=== PATIENT | male | born 1950 | race African-American/Black ===

== ENCOUNTER 2017-03-20 20:27 | Emergency (ER) | payer OTHER ==
[2017-03-20 20:31] VITALS: BP 123/59; TEMP 99.2; BMI 21.4
[2017-03-20 21:12] LABS: BASOPHIL 4.5 % (0-2.0); EOSINOPHIL 0.3 % (0-4.5); MCH 30.8 pg (25.7-33.7); MCHC 34.2 g/dl (32.0-35.9); MEAN PLT VOLUME 9.1 fl (7.5-11.1); NEUTROPHILS 76.7 % (42.8-82.8); PLATELET COUNT 130 K/MM3 (134-434); RDW 13.5 % (11.9-15.9); WHITE BLOOD COUNT 15.5 K/mm3 (4.0-10.8)
[2017-03-20 21:22] LABS: CPK(DFH) 152 IU/L (38-174)
[2017-03-20 21:23] LABS: ALBUMIN 4.2 g/dl (3.5-5.0); ALK PHOS 48 U/L (32-92); ANION GAP 6 (8-16); BILIRUBIN,TOTAL 0.9 mg/dl (0.2-1.0); CALCIUM 8.8 mg/dl (8.4-10.2); CO2 29 mmol/L (22-28); COCKROFT - GAULT 55.57; CREATININE 1.2 mg/dl (0.6-1.3); GLUCOSE,RANDOM 120 mg/dl (74-106); SGOT/AST 38 U/L (10-42); SGPT/ALT 22 U/L (10-40); TOT PROT 7.1 g/dl (6.4-8.3)
--- NOTE | 2017-03-20 21:37 | PDOC ---
[id number] 4d MIGRAINE/CHEST PAIN/COUGH Time Seen by Provider: 03/20/17 20:34 - History of Present Illness Initial Comments: This 66-year-old man with a history of diverticulitis/colon resection but no other significant history presents with 2 day history of nonproductive cough, fever and headache. Patient is from [place], visiting family here . He traveled by car from [place] approximately one week ago. He has no history of smoking/asthma/COPD. No history of other recent travel and no known sick contacts. Patient states that he had MRI of brain in December of this year. He was told that he possibly had a mass and that a repeat MRI should be performed in 3-4 months. No previous history of headache or other neurologic abnormalities. Patient describes today's headache as being primarily in the frontal area, nonpulsatile. No nausea/vomiting or photophobia. 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) GI Disorders: Yes (DIVERTICULITIS) - Surgical History Abdominal Surgery: Yes (COLON RESECTION) - Psycho/Social/Smoking Cessation Hx Anxiety: No Suicidal Ideation: No Smoking History: Never smoked Review of Systems - Review of Systems Able to Perform ROS?: Yes Comments:: 12 point review of systems is negative except for what is noted in the history of present illness *Physical Exam - Vital Signs Last Vital Signs Temp Pulse Resp BP Pulse Ox 99.2 F 78 16 123/59 97 03/20/17 20:29 03/20/17 20:29 03/20/17 20:29 03/20/17 20:29 03/20/17 20:29 - Physical Exam Comments: GENERAL: Awake, alert, and fully oriented, in no acute distress HEAD: No signs of trauma EYES:, pupils 2 mm and equal, briskly reactive, EOMI, sclera anicteric, conjunctiva clear ENT: Auricles normal inspection, hearing grossly normal, nares patent, oropharynx clear without exudates. Moist mucosa NECK: Normal ROM, supple, no lymphadenopathy, JVD, or masses; no meningismus present LUNGS: Expiratory crackles bilateral bases; no wheezing or rhonchi present HEART: Regular rate and rhythm, normal S1 and S2, no murmurs, rubs or gallops ABDOMEN: Soft, nontender, normoactive bowel sounds. No guarding, no rebound. No masses EXTREMITIES: Normal range of motion, no edema. No clubbing or cyanosis. No cords, erythema, or tenderness NEUROLOGICAL: Cranial nerves II through XII grossly intact. Normal speech, normal gait SKIN: Warm, Dry, normal turgor, no rashes or lesions noted. ED Treatment Course - LABORATORY CBC & Chemistry Diagram: 03/20/17 20:51 03/20/17 20:51 - ADDITIONAL ORDERS Additional order review: Laboratory Results 03/20/17 03/20/17 20:51 20:51 Sodium 136 Potassium 4.8 Chloride 101 Carbon Dioxide 29 H Anion Gap 6 L BUN 13 Creatinine 1.2 Creat Clearance w eGFR > 60 Random Glucose 120 H Calcium 8.8 Total Bilirubin 0.9 AST 38 ALT 22 Alkaline Phosphatase 48 Creatine Kinase 152 Total Protein 7.1 Albumin 4.2 03/20/17 20:51 RBC 5.37 MCV 90.0 MCHC 34.2 RDW 13.5 MPV 9.1 Neutrophils % 76.7 Lymphocytes % 12.9 Monocytes % 5.6 Eosinophils % 0.3 Basophils % 4.5 H Medical Decision Making - Medical Decision Making Because of the patient's previous history of possible intracranial mass and a few day history of headache, noncontrast head CT was performed to evaluate for intracranial pathology. Interpretation by Imaging administration assistant showed no evidence of acute intracranial abnormality . No mass was seen. There was note of mucoperiosteal thickening of the paranasal sinuses, otherwise no abnormality seen. Twelve-lead electrocardiogram performed. This showed normal sinus rhythm at 72 bpm; intervals, wave forms and axis are all normal. There is no evidence of acute ST or T-wave abnormalities. Laboratory evaluation notable for white blood cell count of 15, 500 with mild left shift. CBC was otherwise unremarkable. Chemistry profile was essentially normal. Cardiac enzymes were not elevated. Chest x-ray (PA/lateral) showed bibasilar atelectasis but no evidence of infiltrate, mass or effusion. Patient given a liter of normal saline IV. He is also given Toradol 30 mg IV for his headache. Patient describes significant relief in his headache after fluid and IV Toradol. Clinical presentation most consistent with acute bronchitis. Because patient has a elevation of white blood cell count of 15,500, there is possibility that he may have early pneumonia (especially in light of his abnormal auscultatory exam). Because of this, he will be started on azithromycin 5 day course. First dose of 500 mg will be administered here in the emergency room with prescription for remainder of the course be transmitted to his pharmacy. The patient also asked for anti-inflammatory to be used if he has any further pain/ headache. Small (#20) prescription of Toradol 10 mg to be used up to 4 times a day, taken with food, will be prescribed as needed. The patient is scheduled to for return to [place] by car tomorrow. 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 He should follow-up with his own doctor within 48 hours of return to [place] (workup results will be provided for the patient). He should return to the emergency room if he has persistent high fever, severe cough or shortness of breath *DC/Admit/Observation/Transfer Diagnosis at time of Disposition: Acute bronchitis Qualifiers: Bronchitis organism: unspecified organism Qualified Code(s): J20.9 - Acute bronchitis, unspecified - Discharge Dispostion Disposition: HOME Condition at time of disposition: Stable - Prescriptions Prescriptions: Ketorolac Tromethamine [Toradol] 10 mg PO Q6H PRN #20 tablet PRN Reason: Moderate Pain Azithromycin [Zithromax 250mg Tablets -] 250 mg PO DAILY #4 tablet - Patient Instructions Printed Discharge Instructions: DI for Acute Bronchitis Additional Instructions: rest Drink plenty of fluids Azithromycin 250 mg daily to complete 5 day course toradol 10mg up to 4 times a day for pain/headache; take with food Follow-up with your general medical doctor within a few days after returning home Return to ER if you have severe cough/shortness of breath/high fever
[2017-03-20 21:40] LABS: TROPONIN I (DFP) < 0.03 ng/ml (0.03-0.50)
[2017-03-20 21:51] LABS: CK MB 0.5 ng/ml (0.3-4.0)
[2017-03-20 22:10] VITALS: PULSE 70
[2017-03-20] MEDS ORDERED: KETOROLAC TROMETHAMINE 30 MG/1 ML VIAL IVPUSH ONE (23:08)
[2017-03-20] MEDS ORDERED: KETOROLAC TROMETHAMINE 30 MG/1 ML VIAL ONE (23:12)
[2017-03-21] MEDS ORDERED: AZITHROMYCIN 250 MG TABLET (FP) ONE (00:38)
[2017-03-21] MEDS: AZITHROMYCIN 250 MG TABLET (FP) PO ONE (00:40)
--- NOTE | 2017-03-23 09:57 | EKG ---
Test Reason : Blood Pressure : / mmHG Vent. Rate : 072 BPM Atrial Rate : 072 BPM P-R Int : 160 ms QRS Dur : 084 ms QT Int : 372 ms P-R-T Axes : 066 045 048 degrees QTc Int : 407 ms NORMAL SINUS RHYTHM POSSIBLE LEFT ATRIAL ENLARGEMENT Confirmed by MD DENYS, KAMILAH ([id number]) on 03/23/2017 9:57:31 AM Referred By: MILAN Confirmed By:KAMILAH MCFARLANE MD
== END 2017-03-21 00:50 | disposition home or self-care (01) ==
LOC: FER 20:27
PROC: 3E0333Z Introduction of Anti-inflammatory into Peripheral Vein, Percutaneous Approach (ICD-10-PCS; principal; 2017-03-20)
DX: J20.9 Acute bronchitis, unspecified (principal)
CPT/HCPCS: 36415; 70450-TC; 71020-TC; 80053; 82550; 82553; 84484; 85025; 93005; 99284-25